=== PATIENT | female | born 1935 | race Caucasian/White ===

== ENCOUNTER 2017-09-30 10:34 | Inpatient (IN) | payer MEDICARE ==
[~2017-09-30] VITALS: Ht 165.1 cm; Wt 55.8 kg
[~2017-09-30 10:34] MED LIST: ANTIVERT25 MG PO; ATROVENT HFA14 GM INH; AUGMENTIN 875875 MG PO; BONINE25 MG PO; CEFUROXIME500 MG PO; CITRACAL + D E1 EACH PO; CLARITIN10 MG PO; FLOVENT 110 MCG PO; ICAPS TABLET1 EACH PO; NORCO 5-325 TA1 EACH PO; PREDNISONE 5 MG5 M1 PO; PROAIR HFA8.5 GM INH; PROBIOTIC1 EAC1 PO; PULMICORT FLE180 MCG IH; SORINE 80 MG TA80 M1 PO; VENTOLIN HFA 1818 GM INH; VITAMIN B-12500 MCG PO; VITAMIN D31000 UNI2 PO; XARELTO20 MG PO; XOPENEX HF1 UDINHALE IH; ZPAK PO
[2017-09-30 10:40] VITALS: BP 135/64
[2017-09-30] MEDS ORDERED: LIPITOR40 MG PO (10:44)
[2017-09-30 11:08] LABS: ABSOLUTE BASOPHILS 0.1 thou/uL (0.0-0.2); ABSOLUTE EOSINOPHILS 0.2 thou/uL (0.0-0.7); ABSOLUTE LYMPHOCYTES 1.3 thou/uL (0.8-5.3); ABSOLUTE MONOCYTES 0.5 thou/uL (0.0-1.2); ABSOLUTE NEUTROPHILS 5.7 thou/uL (1.6-8.1); BASOPHILS 1.5 %; EOSINOPHILS 3.1 %; HEMOGLOBIN 13.5 gm/dL (12.0-15.0); MCH 30.6 pg (26.0-34.0); MCHC 32.8 g/dL (28.0-37.0); MCV 93.1 fL (80.0-100.0); MONOCYTES 6.8 %; MPV 7.6 fl. (7.2-11.1); NUCLEATED RBCS 0 /100WBC; PLATELET COUNT* 188 thou/uL (150-400); POLYS 71.6 %; RDW-CV 14.4 % (10.5-14.5); WBC 7.9 thou/uL (4.0-11.0)
[2017-09-30 11:17] LABS: APTT 26.7 Seconds (25.0-31.3); INR 1.1; PROTIME 10.3 Seconds (9.20-11.50)
[2017-09-30 11:24] LABS: ANION GAP 6 mmol/L (7-16); BUN 22 mg/dL (7-18); CALCIUM 9.3 mg/dL (8.5-10.1); CHLORIDE 106 mmol/L (98-107); CO2 32 mmol/L (21-32); CREATININE 0.8 mg/dL (0.6-1.3); GLUCOSE 93 mg/dL (70-99); POTASSIUM 3.5 mmol/L (3.5-5.1); SODIUM 144 mmol/L (136-145)
[2017-09-30 11:28] LABS: ALBUMIN 3.2 g/dL (3.4-5.0); ALKALINE PHOSPHATASE 169 U/L (46-116); LIPASE 151 U/L (73-393); MAGNESIUM 2.1 mg/dL (1.8-2.4); NT-PRO BRAIN NAT PEPTIDE 142 pg/mL (<300); SGOT 52 U/L (15-37); SGPT 53 U/L (30-65); TOTAL BILIRUBIN 0.8 mg/dL (<0.1-1.0); TOTAL PROTEIN 6.6 g/dL (6.4-8.2); TROPONIN-I LEVEL <0.06 ng/mL (<0.06)
[2017-09-30 12:36] VITALS: BP 111/51
[2017-09-30 13:09] VITALS: BP 115/45
--- NOTE | 2017-09-30 15:42 | 2DMMODE ---
[place] [address] 2 D/M-MODE ECHOCARDIOGRAM Name: FRED MCCORMICK Room: [address] IN [facility]#: [id number] Admission: 09/30/17 Attend Phys: Alexander Hooks Discharge: Date of : 31 Date of Service: 09/30/17 1542 Report #: [id number] THIS REPORT FOR: //name// APPROVED REPORT Study performed: 09/30/2017 15:04:56 EXAM: Comprehensive 2D, Doppler, and color-flow Echocardiogram Patient Location: In-Patient Room #: [facility] Status: routine BSA: 1.63 HR: 77 bpm BP: 115/45 mmHg Rhythm: NSR Other Information Study Quality: Good Indications Chest Pain 2D Dimensions LVEF(%): 59.45 (>50%) IVSd: 10.26 (7-11mm) LVOT Diam: 19.43 (18-24mm) LVDd: 40.50 mm PWd: 8.46 (7-11mm) Ascending Ao: 35.64 (22-36mm) LVDs: 27.88 (25-40mm) Aortic Root: 31.62 mm Vila's LVEF: 59.45 % Volumes Left Atrial Volume (Systole) LA ESV Index: 23.00 mL/m2 Aortic Valve AoV Peak Jerson.: 1.17 m/s AO Peak Gr.: 5.45 mmHg LVOT Max P.82 mmHg AO Mean Gr.: 3.01 mmHg LVOT Mean P.01 mmHg LVOT Max V: 0.98 m/s AO V2 VTI: 24.67 cm LVOT Mean V: 0.67 m/s MOR (VTI): 2.40 cm2 LVOT V1 VTI: 19.95 cm Mitral Valve E/A Ratio: 0.71 [place] [address] 2 D/M-MODE ECHOCARDIOGRAM Name: FRED MCCORMICK Room: [address] IN .R.#: [id number] Admission: 09/30/17 Attend Phys: Alexander Hooks Discharge: Date of : 31 Date of Service: 09/30/17 1542 Report #: [id number] MV Decel. Time: 244.49 ms MV E Max Jerson.: 0.85 m/s MV PHT: 70.90 ms MVA (PHT): 3.10 cm2 TDI E/Lateral E': 10.63 E/Medial E': 6.54 Medial E' Jerson.: 0.13 m/s Lateral E' Jerson.: 0.08 m/s Pulmonary Valve PV Peak Jerson.: 0.77 m/s PV Peak Gr.: 2.39 mmHg Tricuspid Valve TR Peak Gr.: 19.68 mmHg RVSP: 24.00 mmHg Left Ventricle The left ventricle is normal size. There is normal LV segmental wall motion. There is normal left ventricular wall thickness. Left ventricular systolic function is normal. LVEF is 55-60%. Grade I - abnormal relaxation pattern. Right Ventricle The right ventricle is normal size. The right ventricular systolic function is normal. Atria The left atrium size is normal. The right atrium size is normal. Aortic Valve The aortic valve is normal in structure. No aortic regurgitation is present. There is no aortic valvular stenosis. Mitral Valve The mitral valve is normal in structure. Trace mitral regurgitation. No evidence of mitral valve stenosis. Tricuspid Valve The tricuspid valve is normal in structure. Trace tricuspid regurgitation. The RVSP is ____24___ mmHg. Pulmonic Valve The pulmonary valve is normal in structure. There is no pulmonic [place] [address] 2 D/M-MODE ECHOCARDIOGRAM Name: FRED MCCORMICK Room: [address] IN [facility]#: [id number] Admission: 09/30/17 Attend Phys: Alexander Hooks Discharge: Date of : 31 Date of Service: 09/30/17 1542 Report #: [id number] Great Vessels The aortic root is normal in size. IVC is normal in size and collapses with >50% inspiration Pericardium There is no pericardial effusion. <Conclusion> The left ventricle is normal size. There is normal left ventricular wall thickness. Left ventricular systolic function is normal. LVEF is 55-60%. Grade I - abnormal relaxation pattern. Trace tricuspid regurgitation. The RVSP is ____24___ mmHg. <ELECTRONICALLY SIGNED> By: Poncho Ramirez MD, FACC 09/30/17 1542 [id number] Poncho Ramirez MD, FACC /INF
--- NOTE | 2017-09-30 16:35 | EKG ---
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: UNKNOWN : 1935 Requested By: Frankie Moody Order Number: [id number] MD: Poncho Ramirez Measurements Intervals [place] Rate: 75 P: 55 KS: 196 QRS: -51 QRSD: 106 T: 36 QT: 379 QTc: 424 Interpretive Statements Sinus rhythm Left anterior fascicular block Anterior Q waves, possibly due to LVH Compared to ECG 09/26/2016 07:55:26 T-wave abnormality no longer present Electronically Signed On 09-30-2017 16:35:18 SOLE DYER by Poncho Ramirez [email or web address] <ELECTRONICALLY SIGNED> By: Poncho Ramirez MD, FACC 09/30/17 1635 1041 1041 Poncho Ramirez MD, FAC /EPI
[2017-09-30 16:43] VITALS: BP 97/48
[2017-09-30 20:00] VITALS: BP 111/50
[2017-10-01] VITALS: BP 96/46
[2017-10-01 04:00] VITALS: BP 109/52
[2017-10-01 07:55] VITALS: BP 116/60
--- NOTE | 2017-10-01 08:51 | CON ---
[address] [address] CONSULTATION Name: FRED MCCORMICK Room: [address] IN ..#: [id number] Admission: 09/30/17 Attend Phys: Ang Godinez Discharge: Date of : 31 Report #: [id number] THIS REPORT FOR: //name// CC: Estella Hooks DATE OF SERVICE: 09/30/2017 INDICATION: Chest pain. HISTORY OF PRESENT ILLNESS: The patient is a very pleasant 81-year-old white female with paroxysmal atrial fibrillation and coronary artery disease based on a calcium score of 45. She has no history of myocardial infarction or heart failure. She was admitted to the hospital this morning with midsternal chest discomfort and shortness of breath. She states she had a first episode last evening, which lasted for several minutes and then resolved. This morning, she had recurrence of midsternal chest discomfort associated with shortness of breath for which she came to the Emergency Room for further evaluation. She reports no nausea or diaphoresis with the discomfort. The pain was without radiation. She is without other cardiac complaints at this time. PAST MEDICAL HISTORY: 1. Paroxysmal atrial fibrillation. 2. Coronary artery disease. 3. Hyperlipidemia. 4. Chronic anticoagulation. 5. Asthma. 6. GERD. FAMILY HISTORY: Noncontributory. SOCIAL HISTORY: The patient does not smoke now nor has she ever. She does not drink alcohol. She is . Her is in attendance with her. ALLERGIES: None documented. CURRENT MEDICATIONS: Vitamin D3 one tablet daily, B12 one tablet daily, Atrovent 2 puffs 4 times daily, albuterol 2 puffs 2 times a day, 1 tablet daily, Xarelto 20 mg daily, sotalol 40 mg b.i.d., Nasacort 2 puffs each nostril daily, Lipitor 40 mg at bedtime. REVIEW OF SYSTEMS: NEUROLOGIC: She denies convulsions, [place] [address] CONSULTATION Name: FRED MCCORMICK Room: [address] IN [facility].#: [id number] Admission: 09/30/17 Attend Phys: Ang Godinez Discharge: Date of : 31 Report #: [id number] GENERAL: There is no unexplained weight loss or fever. RESPIRATORY: She has a cough that is nonproductive. She reports asthma. CARDIOVASCULAR: As outlined above. ENDOCRINE: There is no history of diabetes, thyroid disease. GASTROINTESTINAL: No nausea, vomiting, hematemesis, melena, hematochezia, jaundice or hepatitis. GENITOURINARY: No dysuria, hematuria. HEMATOLOGIC AND LYMPHATIC: No history of anemia, bleeding disorder, blood clots or cancer. ALLERGIC AND IMMUNOLOGIC: Seasonal allergies. No medical allergies. PSYCHIATRIC: No depression or anxiety. MUSCULOSKELETAL: She has arthritis without connective tissue diseases. SKIN: Occasional rashes. HEENT: She wears glasses. She has no acute loss in vision. EARS, NOSE, MOUTH AND THROAT: She denies decreased hearing or epistaxis. PHYSICAL EXAMINATION: VITAL SIGNS: Stable. Blood pressure 115/45, pulse of 65 and regular. GENERAL: This is a pleasant lady, in no distress. Mood and affect appropriate. HEENT: Extraocular muscles intact. Mucous membranes moist. NECK: Shows no jugular venous distention. There are no carotid bruits. CHEST: Reveals clear lung long without wheezes, rales or rhonchi. CARDIAC: Reveals a regular rhythm, normal S1 and S2. I do not appreciate gallop or murmur. ABDOMEN: Reveals normal bowel sounds. The abdomen is soft, nontender. EXTREMITIES: Shows no edema. Peripheral pulses 2+ and palpable. LABORATORY DATA: A 12-lead EKG shows sinus rhythm with normal QTc. There are no acute ST or T-wave abnormalities noted. Chest x-ray shows no acute cardiopulmonary abnormality. Labs are reviewed. Electrolytes within normal limits. Troponin less than 0.06. IMPRESSION AND RECOMMENDATIONS: 1. Chest pain. The patient has underlying coronary artery disease. We will obtain noninvasive cardiac stress testing to further evaluate. 2. Paroxysmal atrial fibrillation. Continue sotalol at current dose. Continue Xarelto at current dose. 3. Hyperlipidemia, decreasing Lipitor to 20 mg nightly. 4. Asthma, per primary physician. <ELECTRONICALLY SIGNED> By: Poncho Ramirez MD, FACC 10/01/17 0851 1357 1915Micandrew Ramirez MD, FACC /nt
[2017-10-01 11:52] VITALS: BP 100/46
[2017-10-01 15:54] VITALS: BP 100/46
--- NOTE | 2017-10-01 16:01 | CARDNUC ---
[place] [address] CARDIAC NUCLEAR IMAGING REPORT Name: FRED MCCORMICK Room: [address] IN [facility]#: [id number] Admission: 09/30/17 Attend Phys: Alexander Hooks Discharge: Date of : 31 Date of Service: 10/01/17 1601 Report #: [id number] THIS REPORT FOR: //name// APPROVED REPORT Exam: Nuclear Stress Test Indication: chest pain Patient Location: In-Patient Room #: 219 Stress Tech: Ceci Nam Stress Nurse: Teresa Valencia RN Ht: 5 ft 5 in Wt: 125 lbs BSA: 1.62 m2 BMI: 20.79 Medical History Medical History: asthma Medications: ASA, sotalol, xarelto, atorvastatin Allergies: NKDA Cardiac Risk Factors: Age, HLP, PAF Previous Cardiac Procedures: None Stress Test Details Stress Test: Pharmacologic stress testing performed using 0.4 mg of regadenoson per 5 mL given IV over 10 seconds. Reversal agent Aminophyline 100 mg, given intravenously for SOA and persistent nausea/stomach pain. HR Resting HR: 87 bpm Max Heart Rate (APMHR): 137 bpm Max HR Achieved: 120 bpm Target HR (85% APMHR): 116 bpm % of APMHR: 87 Recovery HR: 95 bpm BP Resting BP: 112/67 mmHg Max BP: 107/61 mmHg ECG Resting ECG: Sinus Rhythm, normal EKG Stress ECG: Sinus Rhythm, normal EKG ST Change: None Arrhythmia: None Recovery ECG: Sinus Rhythm, normal EKG Recovery ST Change: None Recovery Arrhythmia: [place] [address] CARDIAC NUCLEAR IMAGING REPORT Name: FRED MCCORMICK Room: [address]#: [id number] Admission: 09/30/17 Attend Phys: Alexander Hooks Discharge: Date of : 31 Date of Service: 10/01/17 1601 Report #: [id number] Clinical Reason for Termination: Completed protocol Stress Symptoms: SOA The patient had no significant symptoms with Lexiscan infusion. Stress ECG Conclusion The baseline 12-lead electrocardiogram shows normal sinus rhythm without significant ST or abnormality. EKGs obtained during and post Lexiscan infusion show sinus rhythm with no significant ST or T wave changes when compared to baseline. There were no stress-induced arrhythmias. NM EXAM: Myocardial Perfusion REST/STRESS Imaging Protocol: Rest Tc-99m/Stress Tc-99m 1 day Resting Data Rest SPECT myocardial perfusion imaging was performed in supine position 30 minutes following the intravenous injection of 11.1 mCi of Tc-99m Sestamibi. Time of rest injection: 1300 Time of rest imagin The images were gated to evaluate regional wall motion and calculate left ventricular ejection fraction. Administration Route: IV Administration Site: Right AC Pharmacologic Stress Pharmacologic stress test was performed by injecting Regadenoson 0.4 mg IV push followed by the intravenous injection of 34.4 mCi of Tc-99m Sestamibi. Time of stress injection: 1440 Time of stress imagin Administration Route: IV Administration Site: Right AC Heart Rate at time of stress injection: 120 bpm. Gated Stress SPECT was performed 40 minutes after stress injection. The images were gated to evaluate regional wall motion and calculate left ventricular ejection fraction. Study Quality Study: Good Artifact: [place] [address] CARDIAC NUCLEAR IMAGING REPORT Name: FRED MCCORMICK Room: [address] IN [facility]#: [id number] Admission: 09/30/17 Attend Phys: Alexander Hooks Discharge: Date of : 31 Date of Service: 10/01/17 1601 Report #: [id number] Study Data At rest, the left ventricular ejection fraction was 69%.. Post stress, the left ventricular ejection was 66%.. TID = 0.86. Perfusion Normal left ventricular perfusion. Wall Motion Normal left ventricular wall motion. Nuclear Conclusion ECG Findings: negative for ischemia Clinical Findings: negative for ischemia Nuclear Findings: negative for ischemia Exercise Capacity: not assessed Left Ventricular Function: normal Risk Study: low Myocardial perfusion images show no defect to suggest infarct or ischemia. Left ventricular systolic function appears normal on gated studies. This is a low risk study. <Conclusion> The baseline 12-lead electrocardiogram shows normal sinus rhythm without significant ST or abnormality. EKGs obtained during and post Lexiscan infusion show sinus rhythm with no significant ST or T wave changes when compared to baseline. There were no stress-induced arrhythmias. <ELECTRONICALLY SIGNED> By: Poncho Ramirez MD, FACC 10/01/17 1601 160 1601 Poncho Ramirez MD, FACC /INF
== END 2017-10-01 16:40 | disposition home or self-care (01) | DRG 303 ==
LOC: M.ERS 10:34 → M.TBA-ER 11:48 → M.2W 11:48
PROVIDERS: Emergency Medicine Emergency Medical Services; ADMIT Internal Medicine
DX: I25.110 Atherosclerotic heart disease of native coronary artery with unstable angina pectoris (principal); J45.909 Unspecified asthma, uncomplicated; E78.5 Hyperlipidemia, unspecified; I48.0 Paroxysmal atrial fibrillation; M19.90 Unspecified osteoarthritis, unspecified site; K59.00 Constipation, unspecified; Z90.49 Acquired absence of other specified parts of digestive tract; Z98.42 Cataract extraction status, left eye; Z98.41 Cataract extraction status, right eye; Z79.01 Long term (current) use of anticoagulants; Z79.51 Long term (current) use of inhaled steroids; Z79.899 Other long term (current) drug therapy

== ENCOUNTER 2018-08-31 07:29 | Emergency (ER) | payer MEDICARE ==
[~2018-08-31] VITALS: Ht 165.1 cm; Wt 54.0 kg
[~2018-08-31 07:29] MED LIST changes: +LIPITOR40 MG PO
[2018-08-31 08:02] LABS: ABSOLUTE BASOPHILS 0.1 thou/uL (0.0-0.2); ABSOLUTE EOSINOPHILS 0.1 thou/uL (0.0-0.7); ABSOLUTE LYMPHOCYTES 1.8 thou/uL (0.8-5.3); ABSOLUTE MONOCYTES 0.6 thou/uL (0.0-1.2); ABSOLUTE NEUTROPHILS 5.3 thou/uL (1.6-8.1); EOSINOPHILS 0.9 %; HEMATOCRIT 41.6 % (37.0-47.0); HEMOGLOBIN 13.7 gm/dL (12.0-15.0); LYMPHOCYTES 22.8 %; MCH 31.4 pg (26.0-34.0); MCV 95.4 fL (80.0-100.0); MONOCYTES 7.4 %; MPV 7.9 fl. (7.2-11.1); NUCLEATED RBCS 0 /100WBC; PLATELET COUNT* 223 thou/uL (150-400); POLYS 67.9 %; RBC 4.36 mil/uL (4.20-5.00); RDW-CV 15.2 % (10.5-14.5); WBC 7.8 thou/uL (4.0-11.0)
[2018-08-31 08:10] LABS: ANION GAP 6 mmol/L (7-16); APTT 28.2 Seconds (25.0-31.3); BUN 19 mg/dL (7-18); CALCIUM 9.2 mg/dL (8.5-10.1); CHLORIDE 107 mmol/L (98-107); CO2 29 mmol/L (21-32); CREATININE 0.8 mg/dL (0.6-1.3); GLUCOSE 117 mg/dL (70-99); INR 1.1; POTASSIUM 3.6 mmol/L (3.5-5.1); PROTIME 11.5 Seconds (9.20-11.50); SODIUM 142 mmol/L (136-145)
[2018-08-31 08:27] LABS: ALBUMIN 3.2 g/dL (3.4-5.0); ALKALINE PHOSPHATASE 63 U/L (46-116); CK-MB MASS < 0.5 ng/mL (<0.5-3.6); LIPASE 156 U/L (73-393); MAGNESIUM 2.2 mg/dL (1.8-2.4); NT-PRO BRAIN NAT PEPTIDE 153 pg/mL (<300); SGOT 21 U/L (15-37); SGPT 23 U/L (30-65); TOTAL BILIRUBIN 0.5 mg/dL (<0.1-1.0); TOTAL PROTEIN 6.4 g/dL (6.4-8.2); TROPONIN-I LEVEL <0.06 ng/mL (<0.06)
[2018-08-31 09:06] VITALS: BP 136/64
--- NOTE | 2018-08-31 15:58 | EKG ---
[place] [address] ELECTROCARDIOGRAM REPORT Name: FRED MCCORMICK Room: [facility]#: [id number] Admission: 08/31/18 Attend Phys: Discharge: 08/31/18 Date of : 31 Report #: [id number] THIS REPORT FOR: //name// [facility] ED Test Date: 2018-08-31 Test Time: 07:35:18 Pat Name: FRED MCCORMICK Department: Room: Gender: F Car Porter: Anderson CONNOLLY RN : 1935 Requested By: Fabrice Shin Order Number: [id number] MD: Salvatore Slaughter Measurements Intervals [place] Rate: 82 P: 25 GA: 195 QRS: -47 QRSD: 107 T: 36 QT: 375 QTc: 438 Interpretive Statements Sinus rhythm Left anterior fascicular block Abnormal R-wave progression, early transition Left ventricular hypertrophy Anterior Q waves, possibly due to LVH Compared to ECG 09/30/2017 10:41:04 No significant changes Electronically Signed On 08-31-2018 15:58:20 CLIENT REPORTING ASSOCIATE by Salvatore Slaughter [email or web address] <ELECTRONICALLY SIGNED> By: Salvatore Slaughter MD, [facility] 08/31/18 1558 0735 0735 Salvatore Slaughter MD, [facility] /EPI
== END 2018-08-31 09:00 | disposition home or self-care (01) ==
LOC: M.ERS 07:29
PROVIDERS: Family Medicine
DX: R07.89 Other chest pain (principal); I48.91 Unspecified atrial fibrillation; J45.909 Unspecified asthma, uncomplicated; M19.90 Unspecified osteoarthritis, unspecified site; Z98.890 Other specified postprocedural states

== ENCOUNTER 2019-02-22 18:44 | Emergency (ER) | payer MEDICARE ==
[~2019-02-22] VITALS: Ht 162.6 cm; Wt 57.6 kg
[2019-02-22] MEDS ORDERED: FLONASE 0.05%50 MCG NASAL (18:56)
[2019-02-22] MEDS ORDERED: DYMISTA NASAL S23 GM NASAL (18:56)
[2019-02-22 19:50] LABS: URINE BILIRUBIN NEGATIVE (Negative); URINE BLOOD NEGATIVE (Negative); URINE CLARITY CLEAR; URINE COLOR YELLOW; URINE GLUCOSE-RANDOM NEGATIVE (Negative); URINE KETONES NEGATIVE (Negative); URINE LEUKOCYTES-REFLEX TRACE (Negative); URINE NITRITE-REFLEX NEGATIVE (Negative); URINE PROTEIN NEGATIVE (Negative); URINE SPECIFIC GRAVITY <= 1.005 (1.005-1.030); URINE UROBILINOGEN 0.2 E.U./dl (0.2-1.0)
[2019-02-22 19:57] LABS: BACTERIA-REFLEX None Seen /HPF (None Seen); CASTS None Seen /LPF (None Seen); CRYSTALS None Seen /LPF (None Seen); SQUAMOUS 0-3 Few /LPF (0-3); URINE RBC None Seen /HPF (0-2); URINE WBC-REFLEX None Seen /HPF (0-5)
[2019-02-22 20:02] LABS: HEMATOCRIT 42.9 % (37.0-47.0); HEMOGLOBIN 14.2 gm/dL (12.0-15.0); MCV 93.9 fL (80.0-100.0); MPV 7.4 fl. (7.2-11.1); NUCLEATED RBCS 0 /100WBC; PLATELET COUNT* 181 thou/uL (150-400); RBC 4.57 mil/uL (4.20-5.00); RDW-CV 14.8 % (10.5-14.5); WBC 6.8 thou/uL (4.0-11.0)
[2019-02-22 20:12] LABS: ANION GAP 9 mmol/L (7-16); BUN 18 mg/dL (7-18); CALCIUM 9.2 mg/dL (8.5-10.1); CHLORIDE 108 mmol/L (98-107); CO2 27 mmol/L (21-32); CREATININE 0.8 mg/dL (0.6-1.3); GLUCOSE 136 mg/dL (70-99); POTASSIUM 4.2 mmol/L (3.5-5.1); SODIUM 144 mmol/L (136-145)
[2019-02-22 20:26] LABS: ALBUMIN 3.2 g/dL (3.4-5.0); ALKALINE PHOSPHATASE 63 U/L (46-116); NT-PRO BRAIN NAT PEPTIDE 103 pg/mL (<300); SGOT 22 U/L (15-37); SGPT 28 U/L (30-65); TOTAL BILIRUBIN 0.4 mg/dL (<0.1-1.0); TOTAL PROTEIN 6.7 g/dL (6.4-8.2); TROPONIN-I LEVEL <0.06 ng/mL (<0.06)
[2019-02-22 20:28] LABS: ABSOLUTE LYMPHOCYTES 0.7 thou/uL (0.8-5.3); ABSOLUTE MONOCYTES 0.1 thou/uL (0.0-1.2); PLATELET ESTIMATE ADEQUATE
[2019-02-22] MEDS ORDERED: KEFLEX500 M1 PO (20:41)
[2019-02-22] MEDS ORDERED: ALBUTEROL2.5 MG/3 M INH (20:41)
[2019-02-22 20:51] VITALS: BP 126/61
--- NOTE | 2019-02-23 12:07 | EKG ---
[place] [address] ELECTROCARDIOGRAM REPORT Name: FRED MCCORMICK Room: [facility]#: [id number] Admission: 02/22/19 Attend Phys: Discharge: 02/22/19 Date of : 31 Report #: [id number] THIS REPORT FOR: //name// [facility] ED Test Date: 2019-02-22 Test Time: 19:45:18 Pat Name: FRED MCCORMICK Department: Room: Gender: F Motion Picture Set Up Worker: JEANNE : 1935 Requested By: Frankie Moody Order Number: [id number] MD: Salvatore Slaughter Measurements Intervals [place] Rate: 88 P: 68 CO: 198 QRS: -47 QRSD: 108 T: 36 QT: 382 QTc: 463 Interpretive Statements Sinus rhythm Probable left atrial enlargement Left anterior fascicular block Left ventricular hypertrophy Anterior Q waves, possibly due to LVH Baseline wander in lead(s) V6 Compared to ECG 08/31/2018 07:35:18 No significant changes Electronically Signed On 02-23-2019 12:07:40 CDT by Salvatore Slaughter [email or web address] <ELECTRONICALLY SIGNED> By: Salvatore Slaughter MD, [facility] 02/23/19 1207 44 44 Salvatore Slaughter MD, [facility] /EPI
== END 2019-02-22 20:52 | disposition home or self-care (01) ==
LOC: M.ERS 18:44
PROVIDERS: Emergency Medicine Emergency Medical Services
DX: N39.0 Urinary tract infection, site not specified (principal); J45.901 Unspecified asthma with (acute) exacerbation; I48.91 Unspecified atrial fibrillation; K90.0 Celiac disease; M19.90 Unspecified osteoarthritis, unspecified site; Z90.49 Acquired absence of other specified parts of digestive tract

== ENCOUNTER 2019-04-03 00:47 | Inpatient (IN) | payer MEDICARE ==
[~2019-04-03] VITALS: Ht 165.1 cm; Wt 59.7 kg
[2019-04-03] VITALS (10 sets, daily range): BP systolic 104–128; BP diastolic 45–64
--- NOTE | ~2019-04-03 | CON ---
[address] [address] CONSULTATION Name: FRED MCCORMICK Room: [address] IN .R.#: [id number] Admission: 04/03/19 Attend Phys: Jeyson Brown MD Discharge: Date of : 31 Report #: [id number] THIS REPORT FOR: //name// CC: Jeyson Ramirez DATE OF SERVICE: 04/03/2019 HISTORY OF PRESENT ILLNESS: This is an 83-year-old female patient who was admitted for an episode, which happened yesterday. It is a poorly defined episode, but it looks like the patient lost the strength in her lower extremities. That happened spontaneously and then the patient came back to her baseline. She has never had this kind of episode before. She has a history of atrial fibrillation. She is on anticoagulation for that. She said she has been moving around and walking without any problem today. She never had this kind of episode before. REVIEW OF SYSTEMS: Negative for any spine symptoms. She never had any mentation issues associated with present symptomatology. A 14-point review of system was carried out and was basically unremarkable except as described above. 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 She has atrial fibrillation for which she takes Xarelto. That was her relevant 14-point review of system. PAST MEDICAL HISTORY: Negative for similar episode. FAMILY HISTORY: Negative for any early age stroke. SOCIAL HISTORY: The patient denies the abuse of alcohol. PHYSICAL EXAMINATION: The patient's examination indicate she is alert, responsive, oriented, able to follow simple and complex command. Her speech, concentration, fund of knowledge and memory is at her baseline. Cranial nerve examination 2-12 looks unremarkable. She has symmetrical strength, sensation, reflexes and tone in all 4 extremities. I do not see any abnormality of [id number]. Fundus examination could not be done. Pulses appeared to be palpable. No cardiac abnormality, no respiratory difficulty or rhonchi was noticed. Blood pressure is 125/64, pulse is 81, temperature is 97.7. LABORATORY DATA: White count is 15. Sodium is normal. She had a CT scan of the head, which does not demonstrate any definite abnormality. IMPRESSION: She had a poorly defined episode. I think the possibility of transient ischemic attack need to be considered, although it will be unusual to have ischemic disease when the [place] [address] CONSULTATION Name: FRED MCCORMICK Room: [address] IN [facility]#: [id number] Admission: 04/03/19 Attend Phys: Jeyson Brown MD Discharge: Date of : 31 Report #: [id number] I discussed the situation with her. I discussed her options with her. She wants to proceed with MRI and MRA and we will do that. More than 50 minutes of time was spent taking care of this patient today and majority of that time was spent counseling and coordinating care. By: [id number] Iyer MD /gabbi
[~2019-04-03 00:47] MED LIST changes: +ALBUTEROL2.5 MG/3 M INH; +DYMISTA NASAL S23 GM NASAL; +FLONASE 0.05%50 MCG NASAL; +KEFLEX500 M1 PO
[2019-04-03 01:36] LABS: BE 0.9 mmol/L (-2 to +3); PCO2 21.9 mmHg (35.0-45.0); pH 7.594 (7.340-7.450)
[2019-04-03 01:41] LABS: PO2 133.8 mmHg (75.0-100.0)
[2019-04-03 01:49] LABS: HEMATOCRIT 38.4 % (37.0-47.0); HEMOGLOBIN 12.7 gm/dL (12.0-15.0); MCH 31.3 pg (26.0-34.0); MCV 94.6 fL (80.0-100.0); MPV 7.8 fl. (7.2-11.1); NUCLEATED RBCS 0 /100WBC; PLATELET COUNT* 177 thou/uL (150-400); RBC 4.06 mil/uL (4.20-5.00); RDW-CV 14.3 % (10.5-14.5)
[2019-04-03 02:01] LABS: CALCIUM 8.6 mg/dL (8.5-10.1); CREATININE 0.7 mg/dL (0.6-1.3); POTASSIUM 3.4 mmol/L (3.5-5.1)
[2019-04-03 02:05] LABS: MAGNESIUM 1.8 mg/dL (1.8-2.4); TOTAL PROTEIN 5.8 g/dL (6.4-8.2)
[2019-04-03 02:19] LABS: URINE BILIRUBIN NEGATIVE (Negative); URINE BLOOD NEGATIVE (Negative); URINE CLARITY CLEAR; URINE COLOR YELLOW; URINE GLUCOSE-RANDOM NEGATIVE (Negative); URINE KETONES 1+ (Negative); URINE LEUKOCYTES-REFLEX NEGATIVE (Negative); URINE NITRITE-REFLEX NEGATIVE (Negative); URINE PROTEIN NEGATIVE (Negative); URINE UROBILINOGEN 0.2 E.U./dl (0.2-1.0)
[2019-04-03 02:21] LABS: ABSOLUTE LYMPHOCYTES 1.1 thou/uL (0.8-5.3); ABSOLUTE MONOCYTES 0.3 thou/uL (0.0-1.2); ABSOLUTE NEUTROPHILS 13.7 thou/uL (1.6-8.1); PLATELET ESTIMATE ADEQUATE
--- NOTE | 2019-04-03 06:48 | NUR ---
RECEIVED BEDSIDE REPORT FROM MUNDO ZAPIEN IN ED. PATIENT ON UNIT AT 0518. PATIENT A&OX4, AT BEDSIDE. SECOND IV STARTED ON PATIENT SUCCESSFULLY. NIH SCORE IN ED WAS 0, ALSO 0 ON UNIT. NERUO CONSULT CALLED. PATIENT USING BEDSIDE COMMODE FOR TOILETING. SOME DIFFICULTY GETTING OUT OF BED. WILL CONTINUE TO MONITOR.
[2019-04-03 08:53] LABS: ALBUMIN 3.1 g/dL (3.4-5.0); CALCIUM 8.8 mg/dL (8.5-10.1); CREATININE 0.7 mg/dL (0.6-1.3); POTASSIUM 3.5 mmol/L (3.5-5.1)
--- NOTE | 2019-04-03 09:01 | NUR ---
PT PASSED HER BED SIDE SWALLOW. NIH 0. A&O X4. UP TO THE BEDSIDE COMMODE WITH 1 PERSON ASSIST. REPORT GIVEN TO MUNDO COVARRUBIAS.
--- NOTE | 2019-04-03 12:03 | EKG ---
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: HERNANDEZ : 1935 Requested By: yAe Barbosa Order Number: [id number] MD: Salvatore Slaughter Measurements Intervals [place] Rate: 91 P: 73 KS: 206 QRS: -48 QRSD: 110 T: 49 QT: 396 QTc: 488 Interpretive Statements Sinus rhythm Incomplete left bundle branch block Probable left ventricular hypertrophy Anterior Q waves, possibly due to LVH Artifact in lead(s) I,II,III,aVR,aVL,aVF and baseline wander in lead(s) V6 Compared to ECG 02/22/2019 19:45:18 Left bundle-branch block now present Electronically Signed On 04-03-2019 12:03:21 CDT by Salvatore Slaughter [email or web address] <ELECTRONICALLY SIGNED> By: Salvatore Slaughter MD, [facility] 04/03/19 1203 Salvatore Slaughter MD, [facility] /EPI
--- NOTE | 2019-04-03 13:45 | NUR ---
SW met with pt to complete initial assessment, introduce self, and SW role. Pt came in to visit with pt during assessment. Pt lives at home with . Pt alert, oriented, pleasant. Pt has children in the area and out of the area; all supportive. Pt did not express any dc needs at this time. SW to continue to follow to assist with safe dc planning.
--- NOTE | 2019-04-03 16:15 | 2DMMODE ---
[place] [address] 2 D/M-MODE ECHOCARDIOGRAM Name: FRED MCCORMICK Room: [address] IN [facility]#: [id number] Admission: 04/03/19 Attend Phys: Jeyson Brown, Discharge: Date of : 31 Date of Service: 04/03/19 1615 Report #: [id number] THIS REPORT FOR: //name// APPROVED REPORT Study performed: 04/03/2019 14:30:40 EXAM: Comprehensive 2D, Doppler, and color-flow Echocardiogram Patient Location: In-Patient Room #: [facility] Status: routine BSA: 1.63 HR: 74 bpm BP: 121/61 mmHg Rhythm: NSR Other Information Study Quality: Good Indications CVA/TIA Echo Enhancing Agent Indication: Rule out Shunt Agent(s) / Amount(s) Used: Agitated Saline 10 cc 2D Dimensions IVSd: 5.83 (7-11mm) LVOT Diam: 19.20 (18-24mm) LVDd: 44.76 mm PWd: 7.29 (7-11mm) Ascending Ao: 34.24 (22-36mm) LVDs: 30.08 (25-40mm) Aortic Root: 32.36 mm Volumes Left Atrial Volume (Systole) LA ESV Index: 25.10 mL/m2 Aortic Valve AoV Peak Jerson.: 0.99 m/s AO Peak Gr.: 3.89 mmHg LVOT Max P.08 mmHg AO Mean Gr.: 2.16 mmHg LVOT Mean P.46 mmHg LVOT Max V: 0.88 m/s AO V2 VTI: 21.23 cm LVOT Mean V: 0.55 m/s MOR (VTI): 2.79 cm2 LVOT V1 VTI: 20.49 [place] [address] 2 D/M-MODE ECHOCARDIOGRAM Name: FRED MCCORMICK Room: [address] IN [facility].#: [id number] Admission: 04/03/19 Attend Phys: Jeyson Brown, Discharge: Date of : 31 Date of Service: 04/03/19 1615 Report #: [id number] Mitral Valve E/A Ratio: 0.81 MV Decel. Time: 223.77 ms MV E Max Jerson.: 0.98 m/s MV PHT: 64.89 ms MVA (PHT): 3.39 cm2 TDI E/Lateral E': 10.89 E/Medial E': 12.25 Medial E' Jerson.: 0.08 m/s Lateral E' Jerson.: 0.09 m/s Pulmonary Valve PV Peak Jerson.: 0.70 m/s PV Peak Gr.: 1.98 mmHg Tricuspid Valve RAP Estimate: 5.00 mmHg TR Peak Gr.: 18.41 mmHg RVSP: 23.00 mmHg PA Pressure: 23.00 mmHg Left Ventricle The left ventricle is normal size. There is normal LV segmental wall motion. There is normal left ventricular wall thickness. Left ventricular systolic function is normal. The left ventricular ejection fraction is within the normal range. LVEF is 50-55%. Grade I - abnormal relaxation pattern. Right Ventricle The right ventricle is normal size. The right ventricular systolic function is normal. Atria The left atrium size is normal. Interatrial septum is intact without evidence of ASD or PFO. The right atrium size is normal. Aortic Valve Mild aortic valve sclerosis. Trace aortic regurgitation. There is no aortic valvular stenosis. Mitral Valve The mitral valve is normal in structure. Trace mitral regurgitation. No evidence of mitral valve stenosis. Tricuspid Valve The tricuspid valve is normal in structure. Trace tricuspid regurgitation. [place] [address] 2 D/M-MODE ECHOCARDIOGRAM Name: FRED MCCORMICK Room: [address] IN [facility]#: [id number] Admission: 04/03/19 Attend Phys: Jeyson Brown, Discharge: Date of : 31 Date of Service: 04/03/19 1615 Report #: [id number] Pulmonic Valve The pulmonary valve is normal in structure. There is no pulmonic valvular regurgitation. Great Vessels The aortic root is normal in size. IVC is normal in size and collapses >50% with inspiration. Pericardium There is no pericardial effusion. <Conclusion> There is normal left ventricular wall thickness. Left ventricular systolic function is normal. The left ventricular ejection fraction is within the normal range. LVEF is 50-55%. Grade I - abnormal relaxation pattern. The right ventricle is normal size. The left atrium size is normal. Mild aortic valve sclerosis. Trace aortic regurgitation. There is no aortic valvular stenosis. The mitral valve is normal in structure. The tricuspid valve is normal in structure. IVC is normal in size and collapses >50% with inspiration. There is no pericardial effusion. There is normal LV segmental wall motion. Interatrial septum is intact without evidence of ASD or PFO. <ELECTRONICALLY SIGNED> By: Salvatore Slaughter MD, FACC 04/03/19 1615 1615 1615 Salvatore Slaughter MD, FACC /INF
--- NOTE | 2019-04-03 17:01 | NUR ---
PT TRANSFERED FROM ICU BED 5 TO TELE. REPORT RECEIVED FROM NURSE. PT IS AOX4. FORGETFUL, ON RA. VSS. IV FLUID INFUSING AT 100 PER HOUR. IV ABX GIVEN ORDERED. IV LINES PATENT. NO COMPLAINT. NIH 2. PT PASSED BEDSIDE SWALLOW EVAL. ECHO COMPLETE AT BEDSIDE. NEURO CONSULT. MRA/MRI IN PROCESS. WILL CONTINUE TO MONITOR PT
[2019-04-04] VITALS: BP 118/52
[2019-04-04 02:06] LABS: GLYCOHEMOGLOBIN (HGB A1C) 5.6 % (4.8-5.6)
[2019-04-04 04:00] VITALS: BP 123/57
[2019-04-04 05:12] LABS: ABSOLUTE EOSINOPHILS 0.1 thou/uL (0.0-0.7); ABSOLUTE LYMPHOCYTES 1.1 thou/uL (0.8-5.3); ABSOLUTE MONOCYTES 0.6 thou/uL (0.0-1.2); BASOPHILS 0.6 %; EOSINOPHILS 1.3 %; HEMATOCRIT 36.4 % (37.0-47.0); HEMOGLOBIN 11.9 gm/dL (12.0-15.0); LYMPHOCYTES 13.8 %; MCH 31.4 pg (26.0-34.0); MCHC 32.6 g/dL (28.0-37.0); MCV 96.2 fL (80.0-100.0); MONOCYTES 7.6 %; NUCLEATED RBCS 0 /100WBC; PLATELET COUNT* 157 thou/uL (150-400); POLYS 76.7 %; RBC 3.79 mil/uL (4.20-5.00); RDW-CV 15.1 % (10.5-14.5); WBC 7.9 thou/uL (4.0-11.0)
--- NOTE | 2019-04-04 05:17 | NUR ---
PT A&O X4, MAINTAIN O2 SAT ON RA. NIH SCORE 0 THIS SHIFT. PT IS A STAND BY ASSIST, IMPROVEMENT TO WEAKNESS, GAIT IS STEADY. NO C/O N/V, NO C/O PAIN. ALL PT NEEDS HAVE BEEN MET AT THIS TIME, CURRENTLY ASLEEP IN BED WITH CALL LIGHT WITHIN REACH.
[2019-04-04 05:32] LABS: ANION GAP 7 mmol/L (7-16); BUN 17 mg/dL (7-18); CALCIUM 7.9 mg/dL (8.5-10.1); CHLORIDE 112 mmol/L (98-107); CHOLESTEROL 107 mg/dL (<200); CO2 25 mmol/L (21-32); CREATININE 0.6 mg/dL (0.6-1.3); GLUCOSE 85 mg/dL (70-99); HDL CHOLESTEROL 74 mg/dL (>40); LDL CHOLESTEROL 30 mg/dL (<100); POTASSIUM 3.6 mmol/L (3.5-5.1); SODIUM 144 mmol/L (136-145); TC:HDL 1.4 Ratio (Not establshd)
[2019-04-04 06:07] LABS: SERUM ASSESSMENT Clear; TRIGLYCERIDE 18 mg/dL (<150); VLDL 4 mg/dL (<40)
[2019-04-04 07:45] VITALS: BP 122/54
[2019-04-04 11:39] VITALS: BP 114/59
[2019-04-04 16:30] VITALS: BP 114/59
--- NOTE | 2019-04-04 19:46 | NUR ---
ASSUSSMED CARE OF PT APPROX 0730. REASSESSMENT COMPLETED CHARTED. MEDICATIONS GIVEN CHARTED. PT TEACHING ABOUT PLAN OF CARE AND MEDAICTIONS PROVIDED TO PT AND SPOUSE, PT VERBALIZED UNDERSTANDING. PT WAS OFF UNIT FOR TESTING THIS AFTERNOON. PT WAS CLEARED TO DISCHARGE AFTER TEST RESULTS CAME IN. PT TEACHING DONE ON DISCHARGE INSTRUCTIONS, SPOUSE AT BEDSIDE. PT VERBALIZED UNDERSTANDING. PT WAS ESCORTED TO VEHICLE BY STAFF APPROX 1740.
== END 2019-04-04 17:42 | disposition home or self-care (01) | DRG 690 ==
LOC: M.ERS 00:47 → M.TBA-ER 04:32 → M.2W 04:32 → M.ICU 05:07 → M.2W 07:41
PROVIDERS: Personal Emergency Response Attendant; ADMIT Internal Medicine
DX: N39.0 Urinary tract infection, site not specified (principal); R65.10 Systemic inflammatory response syndrome (SIRS) of non-infectious origin without acute organ dysfunction; D80.3 Selective deficiency of immunoglobulin G [IgG] subclasses; R55 Syncope and collapse; I48.91 Unspecified atrial fibrillation; M19.90 Unspecified osteoarthritis, unspecified site; J45.909 Unspecified asthma, uncomplicated; R27.0 Ataxia, unspecified; Z79.01 Long term (current) use of anticoagulants; Z82.3 Family history of stroke

== ENCOUNTER → 2019-05-29 | Outpatient (CLI) | payer MEDICARE ==
[2019-05-29 12:12] LABS: HEMATOCRIT 40.6 % (37.0-47.0); HEMOGLOBIN 13.6 gm/dL (12.0-15.0); MCH 31.7 pg (26.0-34.0); MCHC 33.5 g/dL (28.0-37.0); MCV 94.6 fL (80.0-100.0); MPV 7.1 fl. (7.2-11.1); RBC 4.29 mil/uL (4.20-5.00); RDW-CV 15.7 % (10.5-14.5); WBC 5.5 thou/uL (4.0-11.0)
== END ==
LOC: M.LAB 11:53
PROVIDERS: Internal Medicine Cardiovascular Disease
DX: I25.10 Atherosclerotic heart disease of native coronary artery without angina pectoris (principal); E78.2 Mixed hyperlipidemia

== ENCOUNTER 2020-03-10 18:14 | Inpatient (IN) | payer MEDICARE ==
[~2020-03-10] VITALS: Ht 154.9 cm; Wt 57.2 kg
[2020-03-10 18:25] VITALS: BP 154/80
[2020-03-10 18:40] LABS: ABSOLUTE BASOPHILS 0.1 thou/uL (0.0-0.2); ABSOLUTE LYMPHOCYTES 1.5 thou/uL (0.8-5.3); ABSOLUTE MONOCYTES 0.7 thou/uL (0.0-1.2); ABSOLUTE NEUTROPHILS 5.8 thou/uL (1.6-8.1); BASOPHILS 0.7 %; EOSINOPHILS 0.3 %; HEMATOCRIT 42.2 % (37.0-47.0); HEMOGLOBIN 14.4 gm/dL (12.0-15.0); LYMPHOCYTES 18.8 %; MCH 32.7 pg (26.0-34.0); MCHC 34.1 g/dL (28.0-37.0); MCV 95.9 fL (80.0-100.0); MONOCYTES 8.3 %; MPV 7.3 fl. (7.2-11.1); NUCLEATED RBCS 0 /100WBC; PLATELET COUNT* 230 thou/uL (150-400); POLYS 71.9 %; RDW-CV 15.5 % (10.5-14.5)
[2020-03-10] MEDS ORDERED: AZELASTINE137 MCG/0. NASAL (18:44)
[2020-03-10 18:49] LABS: CREATININE 0.8 mg/dL (0.6-1.3); POTASSIUM 3.7 mmol/L (3.5-5.1)
[2020-03-10 18:51] LABS: APTT 23.3 Seconds (25.0-31.3)
[2020-03-10 18:53] LABS: ALBUMIN 3.3 g/dL (3.4-5.0); TOTAL BILIRUBIN 0.6 mg/dL (<0.1-1.0); TOTAL PROTEIN 6.4 g/dL (6.4-8.2)
[2020-03-10 19:42] VITALS: BP 145/82
[2020-03-10 19:51] VITALS: BP 125/86
[2020-03-11] VITALS: BP 140/74
[2020-03-11 04:00] VITALS: BP 146/71
[2020-03-11 08:00] VITALS: BP 134/76
[2020-03-11 09:50] LABS: CHOLESTEROL 166 mg/dL (<200); HDL CHOLESTEROL 82 mg/dL (>40); LDL CHOLESTEROL 75 mg/dL (<100); TRIGLYCERIDE 47 mg/dL (<150); VLDL 9 mg/dL (<40)
[2020-03-11 09:57] LABS: SERUM ASSESSMENT Clear
[2020-03-11 12:00] VITALS: BP 136/64
--- NOTE | 2020-03-11 13:46 | 2DMMODE ---
[place] [address] 2 D/M-MODE ECHOCARDIOGRAM Name: FRED MCCORMICK Room: [address] IN [facility]#: [id number] Admission: 03/10/20 Attend Phys: Murray Cardenas, Discharge: Date of : 31 Date of Service: 03/11/20 1346 Report #: [id number] THIS REPORT FOR: cc: Estella Ramirez MD, J. Christopher MD Holkins, John M. MD [facility] ~ APPROVED REPORT Study performed: 03/11/2020 11:27:54 EXAM: Comprehensive 2D, Doppler, and color-flow Echocardiogram Patient Location: In-Patient Room #: [facility] Status: routine BSA: 1.58 HR: 83 bpm BP: 146/71 mmHg Rhythm: NSR Other Information Study Quality: Good Indications CVA/TIA No Bubble study done... patient has had recent negative bubble study. 2D Dimensions IVSd: 8.13 (7-11mm) LVOT Diam: 20.18 (18-24mm) LVDd: 41.20 mm PWd: 9.26 (7-11mm) Ascending Ao: 34.95 (22-36mm) LVDs: 28.21 (25-40mm) Aortic Root: 32.09 mm Volumes Left Atrial Volume (Systole) LA ESV Index: 22.60 mL/m2 Aortic Valve AoV Peak Jerson.: 1.03 m/s AO Peak Gr.: 4.24 mmHg LVOT Max P.41 mmHg AO Mean Gr.: 2.34 mmHg LVOT Mean P.26 mmHg LVOT Max V: 0.78 m/s AO V2 VTI: 20.03 cm LVOT Mean V: 0.52 m/[place] [address] 2 D/M-MODE ECHOCARDIOGRAM Name: FRED MCCORMICK Room: [address] IN ..#: [id number] Admission: 03/10/20 Attend Phys: Murray Cardenas, Discharge: Date of : 31 Date of Service: 03/11/20 1346 Report #: [id number] MOR (VTI): 2.68 cm2 LVOT V1 VTI: 16.81 cm Mitral Valve E/A Ratio: 0.66 MV Decel. Time: 98.06 ms MV E Max Jerson.: 0.73 m/s MV PHT: 28.44 ms MVA (PHT): 7.74 cm2 TDI E/Lateral E': 12.17 E/Medial E': 7.30 Medial E' Jerson.: 0.10 m/s Lateral E' Jerson.: 0.06 m/s Pulmonary Valve PV Peak Jerson.: 0.76 m/s PV Peak Gr.: 2.33 mmHg Tricuspid Valve RAP Estimate: 5.00 mmHg TR Peak Gr.: 13.16 mmHg RVSP: 18.00 mmHg PA Pressure: 18.00 mmHg Left Ventricle The left ventricle is normal size. There is normal LV segmental wall motion. There is normal left ventricular wall thickness. Left ventricular systolic function is borderline. LVEF is 50-55%. Grade I - abnormal relaxation pattern. Right Ventricle The right ventricle is normal size. The right ventricular systolic function is normal. Atria The left atrium size is normal. The right atrium size is normal. Aortic Valve The aortic valve is normal in structure. Trace aortic regurgitation. There is no aortic valvular stenosis. Mitral Valve The mitral valve is normal in structure. Trace mitral regurgitation. No evidence of mitral valve stenosis. Tricuspid Valve The tricuspid valve is normal in structure[place] [address] 2 D/M-MODE ECHOCARDIOGRAM Name: FRED MCCORMICK Room: [address] IN [facility]#: [id number] Admission: 03/10/20 Attend Phys: Murray Cardenas, Discharge: Date of : 31 Date of Service: 03/11/20 1346 Report #: [id number] regurgitation. No pulmonary hypertension. Pulmonic Valve The pulmonary valve is normal in structure. There is no pulmonic valvular regurgitation. Great Vessels The aortic root is normal in size. IVC is normal in size and collapses >50% with inspiration. Pericardium There is no pericardial effusion. <Conclusion> The left ventricle is normal size. There is normal left ventricular wall thickness. Left ventricular systolic function is borderline. LVEF is 50-55%. Grade I - abnormal relaxation pattern. The right ventricle is normal size. The left atrium size is normal. The aortic valve is normal in structure. Trace aortic regurgitation. There is no aortic valvular stenosis. The mitral valve is normal in structure. The tricuspid valve is normal in structure. IVC is normal in size and collapses >50% with inspiration. There is no pericardial effusion. There is normal LV segmental wall motion. <ELECTRONICALLY SIGNED> By: Salvatore Slaughter MD, FACC 03/11/20 1346 1346 1346 Salvatore Slaughter MD, FACC /INF
[2020-03-11 16:00] VITALS: BP 103/61
[2020-03-12] VITALS: BP 133/68
[2020-03-12 04:00] VITALS: BP 124/67
[2020-03-12 08:00] VITALS: BP 104/51
[2020-03-12] MEDS ORDERED: ASPIRIN EC81 M1 PO (10:30)
[2020-03-12 12:05] VITALS: BP 119/73
[2020-03-12 12:21] VITALS: BP 119/73
--- NOTE | 2020-03-12 14:35 | EKG ---
[place] [address] ELECTROCARDIOGRAM REPORT Name: FRED MCCORMICK Room: [address] IN M.R.#: [id number] Admission: 03/10/20 Attend Phys: Murray Cardenas, Discharge: 03/12/20 Date of : 31 Date of Service: 03/10/20 1823 Report #: [id number] THIS REPORT FOR: //name// [facility] ED Test Date: 2020-03-10 Test Time: 18:23:35 Pat Name: FRED MCCORMICK Department: Room: [facility] Gender: F [employer] Driver: [id number] : 1935 Requested By: Fabrice Shin Order Number: [id number] MD: Salvatore Slaughter Measurements Intervals [place] Rate: 86 P: 63 OK: 222 QRS: -46 QRSD: 105 T: 23 QT: 377 QTc: 451 Interpretive Statements Sinus rhythm Borderline prolonged OK interval Left anterior fascicular block Left ventricular hypertrophy Anterior Q waves, possibly due to LVH Minimal ST elevation, lateral leads Compared to ECG 04/03/2019 00:51:58 ST (T wave) deviation now present Left bundle-branch block no longer present Electronically Signed On 03-12-2020 14:35:26 CDT by Salvatore Slaughter [email or web address] <ELECTRONICALLY SIGNED> By: Salvatore Slaughter MD, [facility] 03/12/20 1435 22 182 Salvatore Slaughter MD, [facility] /EPI
== END 2020-03-12 12:40 | disposition home or self-care (01) | DRG 69 ==
LOC: M.ERS 18:14 → M.2W 18:44 → M.TBA-ER 18:44 → M.2W 19:51
PROVIDERS: Family Medicine; ADMIT Internal Medicine; ATTEND Internal Medicine
DX: G45.9 Transient cerebral ischemic attack, unspecified (principal); D84.8 Other specified immunodeficiencies; R30.0 Dysuria; J45.909 Unspecified asthma, uncomplicated; I10 Essential (primary) hypertension; E04.2 Nontoxic multinodular goiter; Z79.01 Long term (current) use of anticoagulants; Z79.899 Other long term (current) drug therapy; Z86.73 Personal history of transient ischemic attack (TIA), and cerebral infarction without residual deficits; Z03.818 Encounter for observation for suspected exposure to other biological agents ruled out